=== PATIENT | female | born 1995 | race Two or more races ===

== ENCOUNTER 2024-02-16 20:03 | Emergency (ER) | payer MEDICAID ==
[~2024-02-16] VITALS: Ht 170.2 cm; Wt 64.5 kg
[2024-02-16 20:11] VITALS: TEMP 98.1
[2024-02-16 20:30] LABS: GLUCOMETER DEV NAME(LOC) ERT.5; GLUCOSE,POINT OF CARE 100 MG/DL (70-110)
[2024-02-16] MEDS: ACETAMINOPHEN 325 MG TABLET PO ONE (23:16)
[2024-02-16] MEDS: BACITRACIN 0.9 GM PACKET OINTMENT TP ONE (23:17)
[2024-02-16 23:23] LABS: BASOPHILS % (AUTO) 0.6 % (0.0-2.0); EOSINOPHILS % (AUTO) 0.4 % (1.0-6.0); HEMATOCRIT 39.2 % (36-46); LYMPHOCYTES # (AUTO) 1.5 K/uL (1.0-4.8); LYMPHOCYTES % (AUTO) 20.9 % (22.0-44.0); MEAN CORPUSCULAR HEMOGLOBIN 31.5 pg (26.0-34.0); MEAN CORPUSCULAR HGB CONC 33.2 G/dL (31.0-37.0); MEAN CORPUSCULAR VOLUME 95 fL (80-100); MONOCYTES # (AUTO) 0.8 K/uL (0.1-1.0); MONOCYTES % (AUTO) 11.3 % (2.0-9.0); NEUTROPHILS # (AUTO) 4.8 K/uL (1.8-7.7); NEUTROPHILS % (AUTO) 66.8 % (40.0-70.0); PLATELET COUNT (AUTO) 162 K/uL (150-450); RED BLOOD CELL COUNT(AUTO) 4.13 MIL/uL (4.00-5.20); RED CELL DISTRIBUTION WIDTH 15.1 % (11.5-14.5); WHITE BLOOD COUNT (AUTO) 7.2 K/uL (4.5-11.0)
[2024-02-16 23:38] LABS: CALCIUM, TOTAL 9.2 mg/dL (8.8-10.5); CREATININE 1.18 mg/dL (0.60-1.30)
[2024-02-16 23:50] LABS: APPEARANCE,URINE CLEAR (CLEAR); BILIRUBIN,URINE NEGATIVE (NEGATIVE); COLOR,URINE YELLOW (YELLOW); GLUCOSE, URINE (UA) 300-500 mg/dL (NEGATIVE); KETONES,URINE NEGATIVE (NEGATIVE); LEUKOCYTE ESTERASE ,URINE NEGATIVE (NEGATIVE); NITRATE,URINE NEGATIVE (NEGATIVE); OCCULT BLOOD,URINE MODERATE (NEGATIVE); PH,URINE 6.5 (5.0-8.0); PROTEIN,URINE 100-200,SEE CONFIRM mg/dL (NEGATIVE); SPECIFIC GRAVITIY, URINE 1.022 (1.003-1.030); UROBILINOGEN,URINE <=1.0 mg/dL (<=1.0)
[2024-02-16 23:50] LABS: POTASSIUM 2.8 mmol/L (3.5-5.1)
[2024-02-17] MEDS ORDERED: POTASSIUM CHL 10 MEQ/WATER 50 ML IV SCH
[2024-02-17 00:05] LABS: SULFOSALICYLIC ACID,URINE 2+ (Negative)
[2024-02-17 00:06] LABS: BACTERIA,URINE None Seen /HPF (None Seen); SQUAMOUS EPITHELIAL CELL,UR Few /LPF (None Seen); WBC,URINE None Seen /HPF (0-5)
[2024-02-17] MEDS ORDERED: SODIUM CHLORIDE 0.9% 1,000 ML IV ONE (00:30)
[2024-02-17] MEDS: POTASSIUM CHLORIDE 20 MEQ ER TABLET PO ONE (01:01)
[2024-02-17] MEDS: POTASSIUM CHL 20 MEQ/0.9% NS 1,000 ML IV ONE (01:04)
[2024-02-17] MEDS: MORPHINE SULFATE 2 MG/ML SYRINGE IVP ONE (01:05)
[2024-02-17 02:36] VITALS: BP 136/85; PULSE 75; RESP 17
== END 2024-02-17 03:25 | disposition home or self-care (01) ==
LOC: EMS 20:03
DX: S09.90XA Unspecified injury of head, initial encounter (principal); M25.522 Pain in left elbow; E11.9 Type 2 diabetes mellitus without complications; Z90.49 Acquired absence of other specified parts of digestive tract; V98.8XXA Other specified transport accidents, initial encounter; Y93.89 Activity, other specified; Y92.89 Other specified places as the place of occurrence of the external cause; Y99.8 Other external cause status
CPT/HCPCS: 99285; 70450; 80048; 81001; 82962; 84703; 85025; 36415; 73080; 73562 ×2; 71260; 72125; 72128; 72131; 74160; 84132; 96374; 29105; 96361; 72193; J2270; J3480; 81002; 99284

== ENCOUNTER 2024-02-27 13:44 | Emergency (ER) | payer MEDICAID ==
[~2024-02-27] VITALS: Ht 165.1 cm; Wt 63.6 kg
[2024-02-27 13:50] VITALS: TEMP 98.2
[2024-02-27 16:49] VITALS: BP 135/94; PULSE 89; RESP 18
== END 2024-02-27 17:11 | disposition home or self-care (01) ==
LOC: EMS 13:44
DX: M25.522 Pain in left elbow (principal); M79.661 Pain in right lower leg; M79.662 Pain in left lower leg; E11.9 Type 2 diabetes mellitus without complications
CPT/HCPCS: 99283